=== PATIENT | female | born 1940 | race Caucasian/White ===

== ENCOUNTER 2022-12-15 02:09 | Emergency (ER) | payer MEDICARE, OTHER ==
[~2022-12-15] VITALS: Ht 142.2 cm; Wt 44.0 kg
[2022-12-15] MEDS ORDERED: LIDOCAINE 2% 5ML JELLY UROJET TOP ONE (07:35)
[2022-12-15] MEDS ORDERED: DONE1TAB64 PO (08:08)
[2022-12-15] MEDS ORDERED: ALLO100T PO (08:08)
[2022-12-15] MEDS ORDERED: SITA50TAB PO (08:08)
[2022-12-15] MEDS ORDERED: FLOM0.4C39 PO (08:08)
[2022-12-15] MEDS ORDERED: LEVO50TA5 PO (08:08)
[2022-12-15] MEDS ORDERED: INSU100V3 SQ (08:08)
[2022-12-15] MEDS ORDERED: INSU100V12 SQ (08:08)
[2022-12-15] MEDS ORDERED: GLIP10TA PO (08:08)
[2022-12-15] MEDS ORDERED: AMLO25TA PO (08:08)
[2022-12-15] MEDS ORDERED: HYDR-3363 PO (08:08)
[2022-12-15] MEDS ORDERED: NS 500 ML IV ONE (09:00)
[2022-12-15 09:42] LABS: VENOUS BASE EXCESS -0.9 (-2.0-2.0); VENOUS HCO3 25.5 MMOL/L (23.0-27.0); VENOUS PARTIAL PRESSURE CO2 49.4 mmHg (38.0-50.0); VENOUS PARTIAL PRESSURE O2 31.2 mmHg (30.0-50.0); VENOUS PH 7.331 UNITS (7.330-7.430); VENOUS STANDARD HCO3 22.8 MMOL/L
[2022-12-15 09:56] LABS: BASO # 0.1 10^3/uL (0.0-0.2); BASO % 0.9 % (0.0-1.0); EOS # 0.2 10^3/uL (0.0-0.5); EOS % 2.1 % (0.0-3.0); HEMATOCRIT 36.1 % (36.0-47.0); HEMOGLOBIN 11.4 g/dl (12.0-15.5); LYMPH # 1.8 10^3/uL (1.5-5.0); LYMPH % 19.6 % (24.0-44.0); MEAN CORPUSCULAR HGB CONC 31.6 g/dl (32.0-36.5); MEAN CORPUSCULAR VOLUME 82.4 fl (80.0-96.0); MONO # 0.7 10^3/uL (0.0-0.8); MONO % 7.5 % (2.0-8.0); NEUTROPHILS # 6.4 10^3/uL (1.5-8.5); NEUTROPHILS % 69.7 % (36.0-66.0); PLATELET COUNT, AUTOMATED 355 10^3/uL (150-450); RED BLOOD COUNT 4.38 10^6/uL (4.00-5.40); WHITE BLOOD COUNT 9.1 10^3/uL (4.0-10.0)
[2022-12-15 10:04] LABS: OSMOLALITY SERUM 306 MOSM/KG (280-301)
[2022-12-15 10:07] LABS: LIPASE 114 U/L (12-53)
[2022-12-15 10:09] LABS: ALBUMIN 2.6 G/DL (3.2-5.2); ALKALINE PHOSPHATASE 116 U/L (46-116); ALT/SGPT 14 U/L (7.0-40); AST/SGOT 15 U/L (<34); BILIRUBIN,DIRECT 0.2 MG/DL (<0.4); BILIRUBIN,TOTAL 0.6 MG/DL (0.3-1.2); BLOOD UREA NITROGEN 25 MG/DL (9-23); CALCIUM LEVEL 8.8 MG/DL (8.3-10.6); CARBON DIOXIDE LEVEL 25 MMOL/L (20-31); CHLORIDE LEVEL 104 MMOL/L (98-107); CREATININE FOR GFR 0.85 MG/DL (0.55-1.30); GLOMERULAR FILTRATION RATE > 60.0 (>32); GLUCOSE, FASTING 393 MG/DL (74-106); POTASSIUM SERUM 4.3 MMOL/L (3.5-5.1); SODIUM LEVEL 138 MMOL/L (136-145); TOTAL PROTEIN 6.6 G/DL (5.7-8.2)
[2022-12-15 10:10] LABS: ACETONE/KETONE 0.08 MMOL/L (0.02-0.27)
[2022-12-15] MEDS ORDERED: CEPH500C PO (12:24)
[2022-12-15] MEDS ORDERED: HumuLIN R (REGULAR) INSULIN (NovoLIN R) **100U/ML** PER UNIT IV ONE (12:25)
[2022-12-15] MEDS ORDERED: BD P31MI2 SC (12:29)
[2022-12-15 12:41] VITALS: BP 144/66; TEMP 98.3; O2SAT 98
== END 2022-12-15 13:07 | disposition home or self-care (01) ==
LOC: M ED 02:09
DX: N39.0 Urinary tract infection, site not specified (principal); Z46.6 Encounter for fitting and adjustment of urinary device; E11.65 Type 2 diabetes mellitus with hyperglycemia; Z79.4 Long term (current) use of insulin; Z79.84 Long term (current) use of oral hypoglycemic drugs; Z79.899 Other long term (current) drug therapy
CPT/HCPCS: 51702; 80047; 80048; 80076; 81001; 82010; 82803; 83036; 83605; 83690; 83930; 85025; 87088; 87186; 93005; 94760; 96361; 96374; 99284; J1815

== ENCOUNTER 2022-12-16 17:11 | Emergency (ER) | payer MEDICARE, OTHER ==
[~2022-12-16] VITALS: Ht 152.4 cm; Wt 42.7 kg
[~2022-12-16 17:11] MED LIST: ALLO100T PO; AMLO25TA PO; BD P31MI2 SC; CEPH500C PO; DONE1TAB64 PO; FLOM0.4C39 PO; GLIP10TA PO; HYDR-3363 PO; INSU100V12 SQ; INSU100V3 SQ; LEVO50TA5 PO; SITA50TAB PO
[2022-12-16 21:26] VITALS: BP 136/80; TEMP 98.2; O2SAT 100
== END 2022-12-16 23:53 | disposition home or self-care (01) ==
LOC: M ED 17:11
DX: T83.021A Displacement of indwelling urethral catheter, initial encounter (principal); E11.9 Type 2 diabetes mellitus without complications; Z79.4 Long term (current) use of insulin; Z79.899 Other long term (current) drug therapy

== ENCOUNTER 2022-12-21 12:12 | Emergency (ER) | payer MEDICARE, OTHER ==
[2022-12-21 12:14] VITALS: TEMP 97.2
[2022-12-21] MEDS ORDERED: LIDOCAINE 2% 5ML JELLY UROJET TOP ONE (14:50)
[2022-12-21] MEDS ORDERED: ACETAMINOPHEN 325 MG TAB PO ONE (16:20)
[2022-12-21 16:40] VITALS: BP 172/84; O2SAT 96
[2022-12-21] MEDS ORDERED: GLIP10TA PO (16:46)
[2022-12-21] MEDS ORDERED: AMLO25TA PO (16:46)
[2022-12-21] MEDS ORDERED: ALLO100T PO (16:46)
[2022-12-21] MEDS ORDERED: DONE1TAB64 PO (16:46)
== END 2022-12-21 14:52 | disposition home or self-care (01) ==
LOC: M ED 12:12
DX: T83.098A Other mechanical complication of other urinary catheter, initial encounter (principal); Z76.0 Encounter for issue of repeat prescription; E11.9 Type 2 diabetes mellitus without complications; G30.9 Alzheimer's disease, unspecified; E03.9 Hypothyroidism, unspecified; Z79.4 Long term (current) use of insulin; Z79.84 Long term (current) use of oral hypoglycemic drugs; Z79.899 Other long term (current) drug therapy

== ENCOUNTER 2022-12-24 16:54 | Emergency (ER) | payer MEDICARE, OTHER ==
[~2022-12-24] VITALS: Ht 142.2 cm; Wt 43.6 kg
[2022-12-25 02:51] VITALS: BP 188/87; TEMP 96.3; O2SAT 100
== END 2022-12-25 03:52 | disposition home or self-care (01) ==
LOC: M ED 16:54
DX: T83.021A Displacement of indwelling urethral catheter, initial encounter (principal); E11.9 Type 2 diabetes mellitus without complications; E03.9 Hypothyroidism, unspecified; G30.9 Alzheimer's disease, unspecified; Z79.4 Long term (current) use of insulin; Z79.899 Other long term (current) drug therapy

== ENCOUNTER 2022-12-27 11:26 | Emergency (ER) | payer MEDICARE, OTHER ==
[~2022-12-27] VITALS: Ht 149.9 cm; Wt 42.0 kg
[2022-12-27 11:27] VITALS: BP 180/72; TEMP 97.8; O2SAT 99
[2022-12-27] MEDS ORDERED: LIDOCAINE 2% 5ML JELLY UROJET TOP ONE (15:05)
== END 2022-12-27 16:23 | disposition home or self-care (01) ==
LOC: M ED 11:26
DX: T83.028A Displacement of other urinary catheter, initial encounter (principal); E11.9 Type 2 diabetes mellitus without complications; F03.90 Unspecified dementia, unspecified severity, without behavioral disturbance, psychotic disturbance, mood disturbance, and anxiety; Z79.4 Long term (current) use of insulin; Z79.899 Other long term (current) drug therapy

== ENCOUNTER 2023-01-12 20:16 | Emergency (ER) | payer MEDICARE, OTHER ==
[2023-01-12 20:18] VITALS: BP 176/89; TEMP 99.8; O2SAT 100
== END 2023-01-12 22:40 | disposition home or self-care (01) ==
LOC: M ED 20:16
DX: T83.028A Displacement of other urinary catheter, initial encounter (principal); E11.9 Type 2 diabetes mellitus without complications; I10 Essential (primary) hypertension; Z79.84 Long term (current) use of oral hypoglycemic drugs; Z79.4 Long term (current) use of insulin; Z79.899 Other long term (current) drug therapy

== ENCOUNTER → 2023-01-14 | Outpatient (REF) | payer MEDICARE, OTHER ==
[2023-01-14 18:19] LABS: BASO # 0.1 10^3/uL (0.0-0.2); BASO % 0.7 % (0.0-1.0); EOS # 0.1 10^3/uL (0.0-0.5); EOS % 1.8 % (0.0-3.0); HEMATOCRIT 37.3 % (36.0-47.0); LYMPH # 2.5 10^3/uL (1.5-5.0); LYMPH % 34.5 % (24.0-44.0); MEAN CORPUSCULAR HEMOGLOBIN 26.7 pg (27.0-33.0); MEAN CORPUSCULAR HGB CONC 32.2 g/dl (32.0-36.5); MEAN CORPUSCULAR VOLUME 82.9 fl (80.0-96.0); MONO # 0.4 10^3/uL (0.0-0.8); MONO % 5.4 % (2.0-8.0); NEUTROPHILS # 4.2 10^3/uL (1.5-8.5); NEUTROPHILS % 57.5 % (36.0-66.0); PLATELET COUNT, AUTOMATED 275 10^3/uL (150-450); WHITE BLOOD COUNT 7.3 10^3/uL (4.0-10.0)
[2023-01-14 18:33] LABS: HEMOGLOBIN A1c 10.6 % (4.0-6.0)
[2023-01-14 18:45] LABS: ALBUMIN 2.7 G/DL (3.2-5.2); ALKALINE PHOSPHATASE 132 U/L (46-116); ALT/SGPT 46 U/L (7.0-40); AST/SGOT 23 U/L (<34); BILIRUBIN,TOTAL 0.7 MG/DL (0.3-1.2); BLOOD UREA NITROGEN 18 MG/DL (9-23); CALCIUM LEVEL 9.1 MG/DL (8.3-10.6); CARBON DIOXIDE LEVEL 23 MMOL/L (20-31); CHLORIDE LEVEL 107 MMOL/L (98-107); CHOLESTEROL LEVEL 148 MG/DL (<200); CHOLESTEROL RISK RATIO 2.79 (<5); CREATININE FOR GFR 0.74 MG/DL (0.55-1.30); GLOMERULAR FILTRATION RATE > 60.0 (>32); GLUCOSE, FASTING 187 MG/DL (74-106); HDL CHOLESTEROL 52.9 MG/DL (>40); LDL CHOLESTEROL 78.5 MG/DL (<100); NON-HDL-C 95.1 MG/DL; POTASSIUM SERUM 3.5 MMOL/L (3.5-5.1); SODIUM LEVEL 143 MMOL/L (136-145); TOTAL 25(OH) VITAMIN D 21.2 NG/ML (20.0-100.0); TOTAL PROTEIN 6.9 G/DL (5.7-8.2); TRIGLYCERIDES LEVEL 83 MG/DL (<150)
[2023-01-14 19:09] LABS: HIV 1&2 SCREEN NEGATIVE (NEGATIVE)
[2023-01-14 19:17] LABS: HEPATITIS C VIRUS ABY INDEX 0.18 INDEX (<0.8)
[2023-01-14 19:23] LABS: URIC ACID 3.9 MG/DL (3.1-7.8)
== END ==
LOC: M LAB REF 17:10
PROVIDERS: ATTEND Nurse Practitioner Family
DX: Z11.9 Encounter for screening for infectious and parasitic diseases, unspecified (principal); M10.9 Gout, unspecified; Z68.22 Body mass index [BMI] 22.0-22.9, adult; E55.9 Vitamin D deficiency, unspecified; R53.83 Other fatigue; E11.9 Type 2 diabetes mellitus without complications; Z79.899 Other long term (current) drug therapy

== ENCOUNTER 2023-01-22 22:32 | Inpatient (IN) | payer MEDICARE, OTHER ==
[~2023-01-22] VITALS: Ht 142.2 cm; Wt 41.8 kg
[2023-01-22] MEDS ORDERED: DEXTROSE 50% 50ML SYRINGE IV STA ×2 (22:40→22:43)
[2023-01-22] MEDS ORDERED: NS 1,000 ML IV ONE (22:50)
[2023-01-22 22:55] LABS: ABG BASE EXCESS -5.4 (-2.0-2.0); ABG HCO3 20.6 MMOL/L (22.0-26.0); ABG O2 SATURATION 98.2 % (95.0-99.0); ABG PARTIAL PRESSURE CO2 42.2 mmHg (35.0-45.0); ABG PARTIAL PRESSURE O2 123.5 mmHg (75.0-100.0); ABG TOTAL CO2 21.9 MMOL/L (23.0-31.0); ABG pH (ARTERIAL) 7.306 UNITS (7.350-7.450)
[2023-01-22 23:19] LABS: BASO # 0.1 10^3/uL (0.0-0.2); BASO % 0.7 % (0.0-1.0); EOS # 0.2 10^3/uL (0.0-0.5); EOS % 2.2 % (0.0-3.0); HEMOGLOBIN 11.8 g/dl (12.0-15.5); LYMPH % 28.8 % (24.0-44.0); MEAN CORPUSCULAR HEMOGLOBIN 26.7 pg (27.0-33.0); MEAN CORPUSCULAR HGB CONC 31.9 g/dl (32.0-36.5); MEAN CORPUSCULAR VOLUME 83.7 fl (80.0-96.0); MONO # 0.8 10^3/uL (0.0-0.8); NEUTROPHILS # 6.1 10^3/uL (1.5-8.5); NEUTROPHILS % 59.6 % (36.0-66.0); PLATELET COUNT, AUTOMATED 414 10^3/uL (150-450); RED BLOOD COUNT 4.42 10^6/uL (4.00-5.40); WHITE BLOOD COUNT 10.3 10^3/uL (4.0-10.0)
[2023-01-22 23:42] LABS: OSMOLALITY SERUM 291 MOSM/KG (280-301)
[2023-01-22 23:43] LABS: CK-MB VALUE MASS 1.3 NG/ML (<3.6)
[2023-01-22 23:44] LABS: ETHYL ALCOHOL (ETHANOL) 0.003 % (0.000-0.010)
[2023-01-22 23:46] LABS: CPK CREATINE PHOSPHOKINASE 43 U/L (34-145); MB/CK RELATIVE INDEX 3.02 (< OR =4)
[2023-01-22 23:47] LABS: THYROID STIMULATING HORMONE 0.048 uIU/ML (0.55-4.78)
[2023-01-23 00:23] LABS: ALBUMIN 2.8 G/DL (3.2-5.2); ALKALINE PHOSPHATASE 116 U/L (46-116); ALT/SGPT 25 U/L (7.0-40); AST/SGOT 13 U/L (<34); BILIRUBIN,DIRECT 0.1 MG/DL (<0.4); BILIRUBIN,TOTAL 0.4 MG/DL (0.3-1.2); BLOOD UREA NITROGEN 24 MG/DL (9-23); CALCIUM LEVEL 9.2 MG/DL (8.3-10.6); CARBON DIOXIDE LEVEL 22 MMOL/L (20-31); CHLORIDE LEVEL 110 MMOL/L (98-107); GLOMERULAR FILTRATION RATE > 60.0 (>32); GLUCOSE, FASTING 20 MG/DL (74-106); POTASSIUM SERUM 3.1 MMOL/L (3.5-5.1); SODIUM LEVEL 141 MMOL/L (136-145); TOTAL PROTEIN 6.7 G/DL (5.7-8.2)
[2023-01-23 00:37] LABS: HEMOGLOBIN A1c 11.2 % (4.0-6.0)
[2023-01-23 00:51] LABS: CK-MB VALUE MASS 1.2 NG/ML (<3.6)
[2023-01-23 00:55] LABS: FREE T4 1.82 NG/DL (0.89-1.76)
[2023-01-23 01:07] LABS: MB/CK RELATIVE INDEX 2.26 (< OR =4)
[2023-01-23] MEDS ORDERED: ACETAMINOPHEN TAB 650MG DOSE (2X325MG) PO PRN (03:15)
[2023-01-23] MEDS ORDERED: GLUCAGON INJ 1MG VIAL SC PRN (03:15)
[2023-01-23] MEDS ORDERED: GLUCOSE 4GM CHEW TABLET PO PRN (03:15)
[2023-01-23] MEDS ORDERED: MAALOX 30 ML SUSP *UDC PO PRN (03:15)
[2023-01-23] MEDS ORDERED: DEXTROSE 50% 50ML SYRINGE IV PRN (03:15)
[2023-01-23] MEDS ORDERED: MOM 30ML SUSPENSION UDC PO PRN (03:15)
[2023-01-23 03:22] LABS: RSV AMPLIFICATION NEGATIVE (NEGATIVE)
[2023-01-23] MEDS ORDERED: DICL100G10 TOP (04:04)
[2023-01-23] MEDS ORDERED: ERGO500029 PO (04:04)
[2023-01-23] MEDS ORDERED: DONE1TAB64 PO (04:09)
[2023-01-23] MEDS ORDERED: GLIP10TA6 PO (04:09)
[2023-01-23] MEDS ORDERED: ALLO100T PO (04:09)
[2023-01-23] MEDS ORDERED: AMLO2.5T3 PO (04:09)
[2023-01-23] MEDS ORDERED: INSU100I36 SC (04:09)
[2023-01-23] MEDS ORDERED: INSU100I16 SC (04:09)
[2023-01-23] MEDS ORDERED: SITA50TAB PO (04:09)
[2023-01-23] MEDS ORDERED: HOME MED LIST COMPLETE! XX SCH (04:10)
[2023-01-23] MEDS ORDERED: POTASSIUM CHLORIDE 10% LIQ 20MEQ/15ML UDC PO ONE (05:00)
[2023-01-23 06:27] LABS: BASO % 0.4 % (0.0-1.0); EOS # 0.1 10^3/uL (0.0-0.5); EOS % 1.1 % (0.0-3.0); HEMATOCRIT 34.9 % (36.0-47.0); LYMPH # 2.9 10^3/uL (1.5-5.0); LYMPH % 25.9 % (24.0-44.0); MEAN CORPUSCULAR HEMOGLOBIN 26.6 pg (27.0-33.0); MEAN CORPUSCULAR HGB CONC 31.5 g/dl (32.0-36.5); MEAN CORPUSCULAR VOLUME 84.3 fl (80.0-96.0); MONO # 0.6 10^3/uL (0.0-0.8); MONO % 5.8 % (2.0-8.0); NEUTROPHILS # 7.4 10^3/uL (1.5-8.5); NEUTROPHILS % 66.5 % (36.0-66.0); PLATELET COUNT, AUTOMATED 319 10^3/uL (150-450); RED BLOOD COUNT 4.14 10^6/uL (4.00-5.40); WHITE BLOOD COUNT 11.1 10^3/uL (4.0-10.0)
[2023-01-23 06:51] LABS: BLOOD UREA NITROGEN 22 MG/DL (9-23); CALCIUM LEVEL 8.6 MG/DL (8.3-10.6); CARBON DIOXIDE LEVEL 24 MMOL/L (20-31); CHLORIDE LEVEL 112 MMOL/L (98-107); CREATININE FOR GFR 0.74 MG/DL (0.55-1.30); GLOMERULAR FILTRATION RATE > 60.0 (>32); GLUCOSE, FASTING 173 MG/DL (74-106); MAGNESIUM LEVEL 1.6 MG/DL (1.8-2.4); POTASSIUM SERUM 4.2 MMOL/L (3.5-5.1); SODIUM LEVEL 143 MMOL/L (136-145)
[2023-01-23] MEDS ORDERED: PEN1MIS21 SC (07:50)
[2023-01-23] MEDS ORDERED: GLUC1TES2 XX (07:50)
[2023-01-23] MEDS ORDERED: BLOOKIT21 XX (07:50)
[2023-01-23] MEDS ORDERED: LANC30MI XX (07:50)
[2023-01-23] MEDS ORDERED: ALCOPAD25 TOP (07:50)
[2023-01-23] MEDS: LACTOBACILLUS ACIDOPHILUS CAP (BACID) PO SCH ×2 (08:00→17:32)
[2023-01-23] MEDS: INSULIN LISPRO (NovoLOG) PER UNIT SC SCH ×3 (08:42→16:48)
[2023-01-23] MEDS ORDERED: cefTRIAXone SOD 1 GM in D5W MINI-BAG PLUS 50 ML IV SCH (12:00)
[2023-01-23 16:10] VITALS: BP 150/80; TEMP 97.5; O2SAT 95
[2023-01-23] MEDS: ENOXAPARIN 40MG/0.4ML SYRINGE (J1650 PER 10MG) SC SCH (16:43)
[2023-01-23] MEDS: allopurinoL 100 MG TAB PO SCH (16:44)
[2023-01-23 18:00] VITALS: BP 140/60; TEMP 96.4; O2SAT 97
[2023-01-23 20:47] VITALS: BP 164/82
[2023-01-23] MEDS ORDERED: INSULIN LISPRO (NovoLOG) PER UNIT SC SCH (21:00)
[2023-01-23 22:00] VITALS: BP 164/82; TEMP 97.9; O2SAT 95
[2023-01-24 02:03] VITALS: BP 130/60; TEMP 97.9; O2SAT 100
[2023-01-24 06:00] VITALS: BP 134/60; TEMP 97.8; O2SAT 94
[2023-01-24] MEDS ORDERED: cefTRIAXone SOD 1 GM in D5W MINI-BAG PLUS 50 ML IV ONE (09:00)
[2023-01-24] MEDS ORDERED: FOSFOMYCIN TROMETHAMINE 3 GM POWDER PACKET (MONUROL) PO ONE (09:00)
[2023-01-24] MEDS ORDERED: MAG SULF 1GM/100ML (MAG RUN) 1 GM in IV 1 EA IV ONE (09:00)
[2023-01-24] MEDS: ENOXAPARIN 40MG/0.4ML SYRINGE (J1650 PER 10MG) SC SCH (09:25)
[2023-01-24] MEDS: allopurinoL 100 MG TAB PO SCH (09:25)
[2023-01-24] MEDS: LACTOBACILLUS ACIDOPHILUS CAP (BACID) PO SCH (09:25)
[2023-01-24 09:26] LABS: PROCALCITONIN <0.04 ng/ml
[2023-01-24] MEDS: INSULIN LISPRO (NovoLOG) PER UNIT SC SCH ×2 (09:27→12:57)
[2023-01-24 10:00] VITALS: BP 136/55; TEMP 97.5; O2SAT 99
[2023-01-24] MEDS ORDERED: LEVO1TAB39 PO (11:54)
[2023-01-24 14:00] VITALS: BP 136/55; TEMP 97.9; O2SAT 98
[2023-01-24] MEDS ORDERED: JANU100T PO (16:27)
[2023-01-24] MEDS ORDERED: LANTINJ4 SC (16:28)
[2023-01-24] MEDS ORDERED: INSU100I16 SQ ×2 (16:32→16:33)
== END 2023-01-24 17:30 | disposition home health service (06) | DRG 917 ==
LOC: M ED 22:32 → M ED INP 01-23 03:08 → ENRESERV 01-23 15:00 → M MSPAV 01-23 16:20
PROVIDERS: ADMIT Family Medicine; ATTEND General Practice
DX: T38.3X1A Poisoning by insulin and oral hypoglycemic [antidiabetic] drugs, accidental (unintentional), initial encounter (principal); G93.41 Metabolic encephalopathy; N39.0 Urinary tract infection, site not specified; E87.20 Acidosis, unspecified; E11.649 Type 2 diabetes mellitus with hypoglycemia without coma; F02.80 Dementia in other diseases classified elsewhere, unspecified severity, without behavioral disturbance, psychotic disturbance, mood disturbance, and anxiety; E87.6 Hypokalemia; E03.9 Hypothyroidism, unspecified; I10 Essential (primary) hypertension; F41.9 Anxiety disorder, unspecified; G30.9 Alzheimer's disease, unspecified; M10.9 Gout, unspecified; D63.8 Anemia in other chronic diseases classified elsewhere; E78.5 Hyperlipidemia, unspecified; E83.42 Hypomagnesemia; R00.1 Bradycardia, unspecified; Z66 Do not resuscitate; Z79.4 Long term (current) use of insulin

== ENCOUNTER 2023-01-31 17:30 | Emergency (ER) | payer MEDICARE, OTHER ==
[~2023-01-31] VITALS: Ht 142.2 cm; Wt 44.4 kg
[~2023-01-31 17:30] MED LIST changes: +ALCOPAD25 TOP; +AMLO2.5T3 PO; +BLOOKIT21 XX; +DICL100G10 TOP; +ERGO500029 PO; +GLIP10TA6 PO; +GLUC1TES2 XX; +INSU100I16 SC; +INSU100I16 SQ; +INSU100I36 SC; +JANU100T PO; +LANC30MI XX; +LANTINJ4 SC; +LEVO1TAB39 PO; +PEN1MIS21 SC
[2023-01-31 20:31] VITALS: BP 131/67; TEMP 97.9; O2SAT 97
== END 2023-01-31 20:32 | disposition home or self-care (01) ==
LOC: M ED 17:30
DX: T83.020A Displacement of cystostomy catheter, initial encounter (principal); E11.9 Type 2 diabetes mellitus without complications; I10 Essential (primary) hypertension; E78.5 Hyperlipidemia, unspecified; E03.9 Hypothyroidism, unspecified; D64.9 Anemia, unspecified; Z79.4 Long term (current) use of insulin; Z79.899 Other long term (current) drug therapy

== ENCOUNTER → 2023-02-03 | Outpatient (REF) | payer MEDICARE, OTHER ==
[2023-02-03 19:42] LABS: BASO # 0.1 10^3/uL (0.0-0.2); BASO % 0.6 % (0.0-1.0); EOS # 0.1 10^3/uL (0.0-0.5); HEMOGLOBIN 10.8 g/dl (12.0-15.5); LYMPH # 2.2 10^3/uL (1.5-5.0); LYMPH % 27.3 % (24.0-44.0); MEAN CORPUSCULAR HEMOGLOBIN 27.2 pg (27.0-33.0); MEAN CORPUSCULAR HGB CONC 32.7 g/dl (32.0-36.5); MEAN CORPUSCULAR VOLUME 83.1 fl (80.0-96.0); MONO # 0.5 10^3/uL (0.0-0.8); MONO % 6.5 % (2.0-8.0); NEUTROPHILS # 5.2 10^3/uL (1.5-8.5); NEUTROPHILS % 64.1 % (36.0-66.0); PLATELET COUNT, AUTOMATED 301 10^3/uL (150-450); RED BLOOD COUNT 3.97 10^6/uL (4.00-5.40); WHITE BLOOD COUNT 8.1 10^3/uL (4.0-10.0)
[2023-02-03 20:02] LABS: BLOOD UREA NITROGEN 20 MG/DL (9-23); CALCIUM LEVEL 8.1 MG/DL (8.3-10.6); CARBON DIOXIDE LEVEL 19 MMOL/L (20-31); CHLORIDE LEVEL 108 MMOL/L (98-107); CREATININE FOR GFR 0.78 MG/DL (0.55-1.30); GLOMERULAR FILTRATION RATE > 60.0 (>32); GLUCOSE, FASTING 309 MG/DL (74-106); MAGNESIUM LEVEL 1.5 MG/DL (1.8-2.4); POTASSIUM SERUM 4.1 MMOL/L (3.5-5.1); SODIUM LEVEL 138 MMOL/L (136-145)
== END ==
LOC: M LAB REF 17:44
PROVIDERS: ATTEND Nurse Practitioner Family
DX: E83.42 Hypomagnesemia (principal); D72.829 Elevated white blood cell count, unspecified

== ENCOUNTER 2023-02-19 17:43 | Emergency (ER) | payer MEDICARE, OTHER ==
[~2023-02-19] VITALS: Ht 149.9 cm; Wt 45.8 kg
[2023-02-19] MEDS ORDERED: NOVOINJ3 SC (18:17)
[2023-02-19 20:55] LABS: VENOUS BASE EXCESS 0.4 (-2.0-2.0); VENOUS HCO3 24.5 MMOL/L (23.0-27.0); VENOUS O2 SATURATION 49.4 % (60.0-80.0); VENOUS PARTIAL PRESSURE CO2 37.8 mmHg (38.0-50.0); VENOUS PARTIAL PRESSURE O2 25.6 mmHg (30.0-50.0); VENOUS STANDARD HCO3 23.8 MMOL/L; VENOUS TOTAL CO2 25.7 MMOL/L (24.0-28.0)
[2023-02-19 21:03] VITALS: TEMP 97.8
[2023-02-19 21:04] LABS: BASO # 0.1 10^3/uL (0.0-0.2); BASO % 0.7 % (0.0-1.0); EOS # 0.2 10^3/uL (0.0-0.5); EOS % 2.8 % (0.0-3.0); HEMATOCRIT 37.4 % (36.0-47.0); HEMOGLOBIN 12.2 g/dl (12.0-15.5); LYMPH # 2.9 10^3/uL (1.5-5.0); LYMPH % 34.6 % (24.0-44.0); MEAN CORPUSCULAR HEMOGLOBIN 27.7 pg (27.0-33.0); MEAN CORPUSCULAR HGB CONC 32.6 g/dl (32.0-36.5); MONO # 0.8 10^3/uL (0.0-0.8); MONO % 9.1 % (2.0-8.0); NEUTROPHILS # 4.5 10^3/uL (1.5-8.5); NEUTROPHILS % 52.4 % (36.0-66.0); PLATELET COUNT, AUTOMATED 288 10^3/uL (150-450); WHITE BLOOD COUNT 8.5 10^3/uL (4.0-10.0)
[2023-02-19 21:24] LABS: LIPASE 40 U/L (12-53)
[2023-02-19 21:25] LABS: ALBUMIN 2.8 G/DL (3.2-5.2); ALKALINE PHOSPHATASE 114 U/L (46-116); ALT/SGPT 34 U/L (7.0-40); AST/SGOT 19 U/L (<34); BILIRUBIN,DIRECT 0.1 MG/DL (<0.4); BILIRUBIN,TOTAL 0.5 MG/DL (0.3-1.2); BLOOD UREA NITROGEN 28 MG/DL (9-23); CARBON DIOXIDE LEVEL 28 MMOL/L (20-31); CHLORIDE LEVEL 109 MMOL/L (98-107); CREATININE FOR GFR 0.86 MG/DL (0.55-1.30); GLOMERULAR FILTRATION RATE > 60.0 (>32); GLUCOSE, FASTING 110 MG/DL (74-106); POTASSIUM SERUM 4.3 MMOL/L (3.5-5.1); SODIUM LEVEL 142 MMOL/L (136-145); TOTAL PROTEIN 6.8 G/DL (5.7-8.2)
[2023-02-19 22:09] LABS: ACETONE/KETONE 0.09 MMOL/L (0.02-0.27)
[2023-02-19 22:31] LABS: OSMOLALITY SERUM 297 MOSM/KG (280-301)
[2023-02-19 23:00] VITALS: BP 175/81
[2023-02-19 23:15] VITALS: O2SAT 98
[2023-02-19] MEDS ORDERED: CEFD300C41 PO (23:30)
[2023-02-20] MEDS ORDERED: CEFDINIR 300 MG CAP (OMNICEF) PO ONE
== END 2023-02-19 23:56 | disposition home or self-care (01) ==
LOC: M ED 17:43
DX: N39.0 Urinary tract infection, site not specified (principal); E11.9 Type 2 diabetes mellitus without complications; F17.200 Nicotine dependence, unspecified, uncomplicated; G30.9 Alzheimer's disease, unspecified; Z79.2 Long term (current) use of antibiotics; Z79.4 Long term (current) use of insulin; Z79.84 Long term (current) use of oral hypoglycemic drugs; Z79.899 Other long term (current) drug therapy

== ENCOUNTER 2023-02-21 01:06 | Inpatient (IN) | payer MEDICARE, OTHER ==
[~2023-02-21] VITALS: Ht 157.5 cm; Wt 48.2 kg
[~2023-02-21 01:06] MED LIST changes: +CEFD300C41 PO; +NOVOINJ3 SC
[2023-02-21 01:50] LABS: HEMATOCRIT 34.2 % (36.0-47.0); MEAN CORPUSCULAR HEMOGLOBIN 27.5 pg (27.0-33.0); MEAN CORPUSCULAR HGB CONC 32.2 g/dl (32.0-36.5); MEAN CORPUSCULAR VOLUME 85.5 fl (80.0-96.0); PLATELET COUNT, AUTOMATED 305 10^3/uL (150-450); WHITE BLOOD COUNT 12.7 10^3/uL (4.0-10.0)
[2023-02-21 02:18] LABS: ATYPICAL LYMPH 15 % (0-5); EOSINOPHILS 2 % (0-3); LYMPHOCYTES 36 % (16-44); MONOCYTES 6 % (0-5); NEUTROPHILS 41 % (28-66)
[2023-02-21 02:19] LABS: PLATELET ESTIMATE NORMAL (NORMAL)
[2023-02-21 02:23] LABS: RSV AMPLIFICATION NEGATIVE (NEGATIVE)
[2023-02-21] MEDS ORDERED: NS 1,000 ML IV ONE (02:35)
[2023-02-21 02:36] LABS: ALBUMIN 2.5 G/DL (3.2-5.2); BILIRUBIN,DIRECT 0.1 MG/DL (<0.4); BILIRUBIN,TOTAL 0.3 MG/DL (0.3-1.2); CALCIUM LEVEL 8.6 MG/DL (8.3-10.6); CREATININE FOR GFR 0.95 MG/DL (0.55-1.30); GLOMERULAR FILTRATION RATE 59.7 (>32); MB/CK RELATIVE INDEX 5.71 (< OR =4); POTASSIUM SERUM 4.3 MMOL/L (3.5-5.1); TOTAL PROTEIN 5.9 G/DL (5.7-8.2)
[2023-02-21] MEDS ORDERED: ISOVUE-370 76% 100ML VIAL As Ordered ONE (02:57)
[2023-02-21 03:36] LABS: CK-MB VALUE MASS < 1.0 NG/ML (<3.6)
[2023-02-21 03:37] LABS: CPK CREATINE PHOSPHOKINASE < 15 U/L (34-145)
[2023-02-21] MEDS ORDERED: MOM 30ML SUSPENSION UDC PO PRN (05:55)
[2023-02-21] MEDS ORDERED: DEXTROSE 50% 50ML SYRINGE IV PRN (05:55)
[2023-02-21] MEDS ORDERED: GLUCOSE 4GM CHEW TABLET PO PRN (05:55)
[2023-02-21] MEDS ORDERED: GLUCAGON INJ 1MG VIAL SC PRN (05:55)
[2023-02-21] MEDS ORDERED: UNRESOLVED CLARIFICATION ENTRY XX STA (06:14)
[2023-02-21] MEDS ORDERED: SYNT125T PO (07:47)
[2023-02-21] MEDS ORDERED: LANTINJ4 SC (07:47)
[2023-02-21] MEDS ORDERED: HOME MED LIST COMPLETE! XX SCH (07:50)
[2023-02-21] MEDS ORDERED: ENOXAPARIN 40MG/0.4ML SYRINGE (J1650 PER 10MG) SC SCH (09:00)
[2023-02-21 09:04] LABS: ALBUMIN 2.2 G/DL (3.2-5.2); ALKALINE PHOSPHATASE 97 U/L (46-116); ALT/SGPT 22 U/L (7.0-40); AST/SGOT 17 U/L (<34); BILIRUBIN,TOTAL 0.2 MG/DL (0.3-1.2); BLOOD UREA NITROGEN 29 MG/DL (9-23); CALCIUM LEVEL 8.1 MG/DL (8.3-10.6); CARBON DIOXIDE LEVEL 25 MMOL/L (20-31); CHLORIDE LEVEL 111 MMOL/L (98-107); CREATININE FOR GFR 0.84 MG/DL (0.55-1.30); GLOMERULAR FILTRATION RATE > 60.0 (>32); GLUCOSE, FASTING 322 MG/DL (74-106); MAGNESIUM LEVEL 1.7 MG/DL (1.8-2.4); POTASSIUM SERUM 4.3 MMOL/L (3.5-5.1); SODIUM LEVEL 141 MMOL/L (136-145); TOTAL PROTEIN 5.3 G/DL (5.7-8.2)
[2023-02-21] MEDS ORDERED: MAGNESIUM OXIDE 400MG TAB (MAG-OX) PO ONE (09:10)
[2023-02-21 09:14] LABS: BASO # 0.1 10^3/uL (0.0-0.2); BASO % 0.8 % (0.0-1.0); EOS # 0.1 10^3/uL (0.0-0.5); EOS % 1.1 % (0.0-3.0); HEMATOCRIT 30.7 % (36.0-47.0); HEMOGLOBIN 10.2 g/dl (12.0-15.5); LYMPH # 2.1 10^3/uL (1.5-5.0); LYMPH % 26.5 % (24.0-44.0); MEAN CORPUSCULAR HEMOGLOBIN 28.7 pg (27.0-33.0); MEAN CORPUSCULAR HGB CONC 33.2 g/dl (32.0-36.5); MEAN CORPUSCULAR VOLUME 86.2 fl (80.0-96.0); MONO # 0.6 10^3/uL (0.0-0.8); MONO % 7.2 % (2.0-8.0); NEUTROPHILS # 5.1 10^3/uL (1.5-8.5); NEUTROPHILS % 64.1 % (36.0-66.0); PLATELET COUNT, AUTOMATED 258 10^3/uL (150-450); RED BLOOD COUNT 3.56 10^6/uL (4.00-5.40); WHITE BLOOD COUNT 7.9 10^3/uL (4.0-10.0)
[2023-02-21] MEDS: LEVOTHYROXINE 125MCG TABLET (0.125MG) PO SCH (09:24)
[2023-02-21] MEDS: INSULIN LISPRO (NovoLOG) PER UNIT SC SCH ×4 (09:24→20:48)
[2023-02-21] MEDS: LEVEMIR (INSULIN DETEMIR) 1 UNITS/0.01ML SC SCH (09:24)
[2023-02-21] MEDS: DOCUSATE SODIUM 100MG CAPSULE PO SCH ×2 (09:25→20:42)
[2023-02-21 12:50] LABS: THYROID STIMULATING HORMONE 0.036 uIU/ML (0.55-4.78)
[2023-02-21 15:09] LABS: FREE T4 1.57 NG/DL (0.89-1.76); VITAMIN B12 LEVEL 243 PG/ML (211-911)
[2023-02-21 16:40] VITALS: BP 180/77; TEMP 98.2; O2SAT 97
[2023-02-21] MEDS: LACTOBACILLUS ACIDOPHILUS CAP (BACID) PO SCH (18:49)
[2023-02-21] MEDS: allopurinoL 100 MG TAB PO SCH (18:49)
[2023-02-21 19:33] VITALS: BP 180/70; TEMP 97.5; O2SAT 99
[2023-02-21] MEDS: cefTRIAXone SOD 1 GM in D5W MINI-BAG PLUS 50 ML IV SCH (19:35)
[2023-02-21] MEDS: ENOXAPARIN 40MG/0.4ML SYRINGE (J1650 PER 10MG) SC SCH (20:42)
[2023-02-21] MEDS ORDERED: DONEPEZIL 5 MG TAB PO SCH (21:00)
[2023-02-21 21:13] VITALS: BP 156/68
[2023-02-22] VITALS: BP 144/60; TEMP 97.6; O2SAT 99
[2023-02-22 04:00] VITALS: BP 144/67; TEMP 96.9; O2SAT 99
[2023-02-22 05:44] LABS: BASO # 0.1 10^3/uL (0.0-0.2); BASO % 0.9 % (0.0-1.0); EOS # 0.2 10^3/uL (0.0-0.5); EOS % 2.8 % (0.0-3.0); HEMATOCRIT 30.6 % (36.0-47.0); HEMOGLOBIN 9.8 g/dl (12.0-15.5); LYMPH # 2.8 10^3/uL (1.5-5.0); LYMPH % 41.3 % (24.0-44.0); MEAN CORPUSCULAR HEMOGLOBIN 27.8 pg (27.0-33.0); MEAN CORPUSCULAR VOLUME 86.7 fl (80.0-96.0); MONO # 0.6 10^3/uL (0.0-0.8); MONO % 8.2 % (2.0-8.0); NEUTROPHILS # 3.1 10^3/uL (1.5-8.5); NEUTROPHILS % 46.5 % (36.0-66.0); PLATELET COUNT, AUTOMATED 244 10^3/uL (150-450); RED BLOOD COUNT 3.53 10^6/uL (4.00-5.40); WHITE BLOOD COUNT 6.7 10^3/uL (4.0-10.0)
[2023-02-22 06:05] LABS: BLOOD UREA NITROGEN 29 MG/DL (9-23); CALCIUM LEVEL 8.5 MG/DL (8.3-10.6); CARBON DIOXIDE LEVEL 24 MMOL/L (20-31); CHLORIDE LEVEL 112 MMOL/L (98-107); CREATININE FOR GFR 0.78 MG/DL (0.55-1.30); GLOMERULAR FILTRATION RATE > 60.0 (>32); GLUCOSE, FASTING 200 MG/DL (74-106); MAGNESIUM LEVEL 1.8 MG/DL (1.8-2.4); POTASSIUM SERUM 4.2 MMOL/L (3.5-5.1); SODIUM LEVEL 142 MMOL/L (136-145)
[2023-02-22] MEDS: LEVOTHYROXINE 125MCG TABLET (0.125MG) PO SCH (06:11)
[2023-02-22 07:40] VITALS: BP 144/66; TEMP 97.2; O2SAT 98
[2023-02-22] MEDS: LEVEMIR (INSULIN DETEMIR) 1 UNITS/0.01ML SC SCH (10:02)
[2023-02-22] MEDS: INSULIN LISPRO (NovoLOG) PER UNIT SC SCH ×4 (10:02→20:11)
[2023-02-22] MEDS: allopurinoL 100 MG TAB PO SCH (10:03)
[2023-02-22] MEDS: DOCUSATE SODIUM 100MG CAPSULE PO SCH ×2 (10:03→20:13)
[2023-02-22] MEDS: LACTOBACILLUS ACIDOPHILUS CAP (BACID) PO SCH ×3 (10:04→17:32)
[2023-02-22 11:33] VITALS: BP 145/69; TEMP 98.2; O2SAT 98
[2023-02-22] MEDS: cefTRIAXone SOD 1 GM in D5W MINI-BAG PLUS 50 ML IV SCH (13:14)
[2023-02-22 16:48] VITALS: BP 136/63; TEMP 97.9; O2SAT 97
[2023-02-22 20:00] VITALS: BP 144/67; TEMP 98.3; O2SAT 100
[2023-02-22] MEDS: ENOXAPARIN 40MG/0.4ML SYRINGE (J1650 PER 10MG) SC SCH (20:13)
[2023-02-23] VITALS: BP 152/60; TEMP 98.4; O2SAT 96
[2023-02-23 03:51] VITALS: BP 168/66; TEMP 97.1; O2SAT 100
[2023-02-23 04:59] LABS: BASO # 0.1 10^3/uL (0.0-0.2); BASO % 0.8 % (0.0-1.0); EOS # 0.1 10^3/uL (0.0-0.5); EOS % 2.2 % (0.0-3.0); HEMATOCRIT 35.5 % (36.0-47.0); HEMOGLOBIN 11.5 g/dl (12.0-15.5); LYMPH # 2.3 10^3/uL (1.5-5.0); LYMPH % 39.3 % (24.0-44.0); MEAN CORPUSCULAR HEMOGLOBIN 27.6 pg (27.0-33.0); MEAN CORPUSCULAR HGB CONC 32.4 g/dl (32.0-36.5); MEAN CORPUSCULAR VOLUME 85.3 fl (80.0-96.0); MONO # 0.5 10^3/uL (0.0-0.8); MONO % 8.2 % (2.0-8.0); NEUTROPHILS # 2.9 10^3/uL (1.5-8.5); NEUTROPHILS % 49.2 % (36.0-66.0); PLATELET COUNT, AUTOMATED 288 10^3/uL (150-450); RED BLOOD COUNT 4.16 10^6/uL (4.00-5.40)
[2023-02-23 05:30] LABS: BLOOD UREA NITROGEN 26 MG/DL (9-23); CARBON DIOXIDE LEVEL 25 MMOL/L (20-31); CHLORIDE LEVEL 107 MMOL/L (98-107); CREATININE FOR GFR 0.83 MG/DL (0.55-1.30); GLOMERULAR FILTRATION RATE > 60.0 (>32); GLUCOSE, FASTING 344 MG/DL (74-106); MAGNESIUM LEVEL 1.8 MG/DL (1.8-2.4); POTASSIUM SERUM 4.3 MMOL/L (3.5-5.1); SODIUM LEVEL 138 MMOL/L (136-145)
[2023-02-23] MEDS: LEVOTHYROXINE 125MCG TABLET (0.125MG) PO SCH (06:15)
[2023-02-23] MEDS: allopurinoL 100 MG TAB PO SCH (08:09)
[2023-02-23] MEDS: DOCUSATE SODIUM 100MG CAPSULE PO SCH (08:09)
[2023-02-23] MEDS: LACTOBACILLUS ACIDOPHILUS CAP (BACID) PO SCH ×2 (08:09→13:01)
[2023-02-23] MEDS: INSULIN LISPRO (NovoLOG) PER UNIT SC SCH ×2 (08:09→13:01)
[2023-02-23] MEDS: LEVEMIR (INSULIN DETEMIR) 1 UNITS/0.01ML SC SCH (08:10)
[2023-02-23 08:16] VITALS: BP 174/68; TEMP 98.1; O2SAT 99
[2023-02-23 09:00] VITALS: BP 108/54
[2023-02-23] MEDS ORDERED: amLODIPine 5 MG TAB PO SCH (09:00)
[2023-02-23 11:24] VITALS: BP 106/52; TEMP 97.8; O2SAT 97
[2023-02-23] MEDS ORDERED: CEFD300C41 PO (12:06)
[2023-02-23] MEDS ORDERED: RISATAB3 PO (12:06)
[2023-02-23] MEDS: cefTRIAXone SOD 1 GM in D5W MINI-BAG PLUS 50 ML IV SCH (13:00)
== END 2023-02-23 15:46 | disposition home health service (06) | DRG 699 ==
LOC: M ED 01:06 → EDBD 01:06 → M ED INP 05:54 → ENRESERV 14:43 → M PCU 16:42
PROVIDERS: ADMIT Family Medicine; ATTEND Internal Medicine
DX: T83.511A Infection and inflammatory reaction due to indwelling urethral catheter, initial encounter (principal); G93.40 Encephalopathy, unspecified; E87.20 Acidosis, unspecified; N13.4 Hydroureter; N13.30 Unspecified hydronephrosis; N39.0 Urinary tract infection, site not specified; R00.1 Bradycardia, unspecified; I10 Essential (primary) hypertension; G30.9 Alzheimer's disease, unspecified; E03.9 Hypothyroidism, unspecified; E11.9 Type 2 diabetes mellitus without complications; K21.9 Gastro-esophageal reflux disease without esophagitis; B96.1 Klebsiella pneumoniae [K. pneumoniae] as the cause of diseases classified elsewhere; R55 Syncope and collapse; F02.80 Dementia in other diseases classified elsewhere, unspecified severity, without behavioral disturbance, psychotic disturbance, mood disturbance, and anxiety; M10.9 Gout, unspecified; Z79.899 Other long term (current) drug therapy; Z79.4 Long term (current) use of insulin; Z66 Do not resuscitate; Z85.828 Personal history of other malignant neoplasm of skin; Y84.6 Urinary catheterization as the cause of abnormal reaction of the patient, or of later complication, without mention of misadventure at the time of the procedure

== ENCOUNTER → 2023-03-17 | Outpatient (CLI) | payer MEDICARE, OTHER ==
[~2023-03-17] MED LIST changes: -CEFD300C41 PO; +CEFD300C42 PO; +PEN-308 SC; -PEN1MIS21 SC; +RISATAB3 PO; +SYNT125T PO
== END ==
LOC: M EKG 16:54
PROVIDERS: ATTEND Nurse Practitioner Family
DX: R00.1 Bradycardia, unspecified (principal); R94.39 Abnormal result of other cardiovascular function study

== ENCOUNTER → 2023-03-25 | Outpatient (REF) | payer MEDICARE, OTHER | LOC: M SMT 17:29 | PROVIDERS: ATTEND Physician Assistant | DX: R30.0 Dysuria (principal) ==

== ENCOUNTER → 2023-07-11 | Outpatient (REF) | payer MEDICARE, OTHER ==
[~2023-07-11] MED LIST changes: +CEFD1CAP9 PO; -CEFD300C42 PO; -INSU100I36 SC; +INSU100I60 SC
[2023-07-11 18:05] LABS: THYROID STIMULATING HORMONE 2.422 uIU/ML (0.55-4.78); TOTAL 25(OH) VITAMIN D 30.1 NG/ML (20.0-100.0)
== END ==
LOC: M LAB REF 16:58
PROVIDERS: ATTEND Nurse Practitioner Family
DX: R94.6 Abnormal results of thyroid function studies (principal); Z79.899 Other long term (current) drug therapy

== ENCOUNTER 2023-09-04 22:54 | Inpatient (IN) | payer MEDICARE, OTHER ==
[~2023-09-04] VITALS: Ht 157.5 cm; Wt 39.0 kg
[2023-09-05] VITALS (8 sets, daily range): BP systolic 97–126; BP diastolic 45–99; TEMP 96.8–97.5; O2SAT 96–100
[2023-09-05] MEDS: fentaNYL 100 MCG/2 ML INJECTION IV ONE (01:27)
[2023-09-05 01:37] LABS: HEMATOCRIT 34.6 % (36.0-47.0); HEMOGLOBIN 11.8 g/dl (12.0-15.5); MEAN CORPUSCULAR HEMOGLOBIN 29.6 pg (27.0-33.0); MEAN CORPUSCULAR HGB CONC 34.1 g/dl (32.0-36.5); MEAN CORPUSCULAR VOLUME 86.9 fl (80.0-96.0); PLATELET COUNT, AUTOMATED 316 10^3/uL (150-450); RED BLOOD COUNT 3.98 10^6/uL (4.00-5.40); WHITE BLOOD COUNT 10.4 10^3/uL (4.0-10.0)
[2023-09-05 01:54] LABS: INR 0.95; PROTHROMBIN TIME 12.4 SECONDS (12.5-14.5)
[2023-09-05 01:58] LABS: ALBUMIN 2.6 G/DL (3.2-5.2); BILIRUBIN,DIRECT 0.2 MG/DL (<0.4); BILIRUBIN,TOTAL 0.8 MG/DL (0.3-1.2); CALCIUM LEVEL 9.5 MG/DL (8.3-10.6); CREATININE FOR GFR 0.96 MG/DL (0.55-1.30); GLOMERULAR FILTRATION RATE 58.9 (>32); POTASSIUM SERUM 4.2 MMOL/L (3.5-5.1); TOTAL PROTEIN 6.7 G/DL (5.7-8.2)
[2023-09-05] MEDS: LIDOCAINE 2% 5ML JELLY UROJET TOP ONE (02:05)
[2023-09-05] MEDS: HumuLIN R (REGULAR) INSULIN (NovoLIN R) **100U/ML** PER UNIT IV STA (02:40)
[2023-09-05 02:51] LABS: APPEARANCE, URINE CLOUDY (CLEAR); BACTERIA, URINE AUTO NEGATIVE (NEGATIVE); BILIRUBIN, URINE AUTO NEGATIVE (NEGATIVE); BLOOD, URINE BLOOD NEGATIVE (NEGATIVE); COLOR, URINE YELLOW (YELLOW); GLUCOSE, URINE (UA) AUTO 3+ mg/dL (NEGATIVE); KETONE, URINE AUTO NEGATIVE (NEGATIVE); LEUKOCYTE ESTERASE, URINE AUTO 3+ (NEGATIVE); NITRITE, URINE AUTO NEGATIVE (NEGATIVE); PROTEIN, URINE AUTO 1+ mg/dL (NEGATIVE); RBC, URINE AUTO 5 /HPF (0-3); SPECIFIC GRAVITY URINE AUTO 1.008 (1.002-1.035); SQUAMOUS EPITHELIAL CELL UR AU 0 /HPF (0-6); UROBILINOGEN, URINE AUTO 0.2 mg/dL (0.0-2.0); WBC, URINE AUTO TNTC /HPF (0-3)
[2023-09-05] MEDS: cefTRIAXone SOD 1 GM in D5W MINI-BAG PLUS 50 ML IV ONE (03:35)
[2023-09-05] MEDS: HYDROMORPHONE HCL 0.5 MG/ 0.5 ML SYRINGE IV PRN (03:52)
[2023-09-05] MEDS: NS 1,000 ML IV SCH (05:00)
[2023-09-05] MEDS ORDERED: GLUCAGON INJ 1MG VIAL SC PRN ×2 (06:25→17:50)
[2023-09-05] MEDS ORDERED: GLUCOSE 4 GM CHEW PO PRN ×2 (06:25→17:50)
[2023-09-05] MEDS ORDERED: MEMA1TAB3 PO (08:17)
[2023-09-05] MEDS ORDERED: JANU100T PO (08:17)
[2023-09-05] MEDS ORDERED: LEVO100T5 PO (08:17)
[2023-09-05] MEDS ORDERED: AMLO1TAB24 PO (08:17)
[2023-09-05] MEDS ORDERED: QUET1TAB17 PO (08:17)
[2023-09-05] MEDS ORDERED: METF500T13 PO (08:17)
[2023-09-05] MEDS ORDERED: HOME MED LIST COMPLETE! XX SCH ×2 (08:20→13:55)
[2023-09-05] MEDS: cefTRIAXone SOD 2 GM in D5W MINI-BAG PLUS 50 ML IV SCH (11:31)
[2023-09-05] MEDS: INSULIN LISPRO (NovoLOG) PER UNIT SC SCH (12:00)
[2023-09-05] MEDS ORDERED: METF-838 PO (13:51)
[2023-09-05] MEDS ORDERED: propofoL 200 MG/20 ML VIAL As Ordered ONE (15:58)
[2023-09-05] MEDS ORDERED: fentaNYL 100 MCG/2 ML INJECTION As Ordered ONE (15:58)
[2023-09-05] MEDS ORDERED: ONDANSETRON 4MG 2ML VIAL As Ordered ONE (15:59)
[2023-09-05] MEDS ORDERED: METOCLOPRAMIDE INJ 10MG/2ML VIAL As Ordered ONE (15:59)
[2023-09-05] MEDS ORDERED: LIDOCAINE 2% 100MG/5ML SDV (FOR ANES.) As Ordered ONE (15:59)
[2023-09-05] MEDS ORDERED: GLYCOPYRROLATE INJ 0.2 MG/ML 2 ML VIAL As Ordered ONE (16:31)
[2023-09-05] MEDS ORDERED: ePHEDrine SULFATE 25 MG/5 ML(5MG/ML) SYRINGE As Ordered ONE (16:58)
[2023-09-05] MEDS: ceFAZolin 2 GM/D5W 50 ML IV BAG As Ordered ONE (17:02)
[2023-09-05] MEDS: LR 1,000 ML IV SCH (17:50)
[2023-09-05] MEDS ORDERED: MEPERIDINE 25 MG/ML 1ML VIAL IV PRN (17:50)
[2023-09-05] MEDS ORDERED: ONDANSETRON 4MG 2ML VIAL IV PRN (17:50)
[2023-09-05] MEDS ORDERED: oxyCODONE 5MG TAB PO PRN (17:50)
[2023-09-05] MEDS ORDERED: DEXTROSE 50% 50ML SYRINGE IV PRN (17:50)
[2023-09-05] MEDS: MORPHINE 2 MG/ML 1ML VIAL IV PRN (18:20)
[2023-09-05] MEDS: INSULIN LISPRO (NovoLOG) PER UNIT SC PRN (18:20)
[2023-09-06] MEDS ORDERED: ceFAZolin SOD 2 GM in IV 1 EA IV SCH (01:00)
[2023-09-06 03:45] VITALS: BP 121/63; TEMP 97.2; O2SAT 98
[2023-09-06] MEDS: CIPROFLOXACIN 500MG TABLET PO SCH (06:00)
[2023-09-06 07:45] VITALS: BP 106/68; TEMP 97.7; O2SAT 97
[2023-09-06] MEDS: D5W/0.45% SODIUM CHLORIDE 1,000 ML IV SCH (08:51)
[2023-09-06] MEDS: ACETAMINOPHEN 500 MG TAB PO SCH (08:51)
[2023-09-06] MEDS: allopurinoL 100 MG TAB PO SCH (09:00)
[2023-09-06 10:00] VITALS: BP 109/70; TEMP 97.7; O2SAT 99
[2023-09-06 13:34] LABS: BASO % 0.5 % (0.0-1.0); EOS % 0.7 % (0.0-3.0); HEMATOCRIT 31.1 % (36.0-47.0); HEMOGLOBIN 9.9 g/dl (12.0-15.5); LYMPH # 0.9 10^3/uL (1.5-5.0); LYMPH % 20.3 % (24.0-44.0); MEAN CORPUSCULAR HEMOGLOBIN 29.6 pg (27.0-33.0); MEAN CORPUSCULAR HGB CONC 31.8 g/dl (32.0-36.5); MEAN CORPUSCULAR VOLUME 93.1 fl (80.0-96.0); MONO # 0.5 10^3/uL (0.0-0.8); MONO % 10.8 % (2.0-8.0); NEUTROPHILS # 2.9 10^3/uL (1.5-8.5); NEUTROPHILS % 67.2 % (36.0-66.0); PLATELET COUNT, AUTOMATED 218 10^3/uL (150-450); RED BLOOD COUNT 3.34 10^6/uL (4.00-5.40); WHITE BLOOD COUNT 4.3 10^3/uL (4.0-10.0)
[2023-09-06] MEDS: LEVEMIR (INSULIN DETEMIR) 1 UNITS/0.01ML SC ONE (13:35)
[2023-09-06] MEDS: INSULIN LISPRO (NovoLOG) PER UNIT SC STA (13:36)
[2023-09-06 13:52] LABS: ACETONE/KETONE 0.12 MMOL/L (0.02-0.27)
[2023-09-06 13:54] LABS: BLOOD UREA NITROGEN 25 MG/DL (9-23); CARBON DIOXIDE LEVEL 24 MMOL/L (20-31); CHLORIDE LEVEL 110 MMOL/L (98-107); CREATININE FOR GFR 0.88 MG/DL (0.55-1.30); GLOMERULAR FILTRATION RATE > 60.0 (>32); GLUCOSE, FASTING 550 MG/DL (74-106); POTASSIUM SERUM 4.6 MMOL/L (3.5-5.1); SODIUM LEVEL 141 MMOL/L (136-145)
[2023-09-06 13:55] LABS: HEMOGLOBIN A1c 10.1 % (4.0-6.0)
[2023-09-06 14:00] VITALS: BP 114/68; TEMP 97.3; O2SAT 98
[2023-09-06] MEDS: INSULIN LISPRO (NovoLOG) PER UNIT SC ONE (15:16)
[2023-09-06] MEDS: INSULIN LISPRO (NovoLOG) PER UNIT SC SCH ×4 (16:40→20:03)
[2023-09-06 20:06] VITALS: BP 101/49; TEMP 97.5; O2SAT 100
[2023-09-06] MEDS: MEMANTINE 5MG TABLET (NAMENDA) PO SCH (20:17)
[2023-09-06] MEDS: QUEtiapine FUMARATE 25 MG TAB PO SCH (20:17)
[2023-09-06] MEDS: amLODIPine 5 MG TAB PO SCH (20:18)
[2023-09-06 23:03] LABS: CALCIUM LEVEL 8.5 MG/DL (8.3-10.6); CREATININE FOR GFR 1.1 MG/DL (0.55-1.30); GLOMERULAR FILTRATION RATE 50.4 (>32); POTASSIUM SERUM 3.9 MMOL/L (3.5-5.1)
[2023-09-06] MEDS: DEXTROSE 50% 50ML SYRINGE IV PRN (23:05)
[2023-09-07] MEDS: traMADol 50 MG TAB PO PRN (04:08)
[2023-09-07 05:53] VITALS: BP 126/59; TEMP 98.1; O2SAT 98
[2023-09-07 06:37] LABS: CALCIUM LEVEL 8.4 MG/DL (8.3-10.6); CREATININE FOR GFR 1.08 MG/DL (0.55-1.30); GLOMERULAR FILTRATION RATE 51.5 (>32); POTASSIUM SERUM 4.8 MMOL/L (3.5-5.1)
[2023-09-07] MEDS: LEVOTHYROXINE 100MCG TABLET (0.1MG) PO SCH (07:08)
[2023-09-07] MEDS: D5W 1,000 ML IV SCH (08:34)
[2023-09-07] MEDS ORDERED: SITagliptin 50 MG TAB (JANUVIA) PO SCH (09:00)
[2023-09-07] MEDS ORDERED: LEVEMIR (INSULIN DETEMIR) 1 UNITS/0.01ML SC SCH (09:00)
[2023-09-07 13:01] LABS: CALCIUM LEVEL 8.4 MG/DL (8.3-10.6); CREATININE FOR GFR 1.06 MG/DL (0.55-1.30); GLOMERULAR FILTRATION RATE 52.6 (>32); POTASSIUM SERUM 4.5 MMOL/L (3.5-5.1)
[2023-09-07 14:00] VITALS: BP 127/60; TEMP 98.6; O2SAT 98
[2023-09-07 20:03] VITALS: BP 132/62; TEMP 97.5; O2SAT 100
[2023-09-07 21:00] LABS: ABG BASE EXCESS -3.7 (-2.0-2.0); ABG HCO3 20.8 MMOL/L (22.0-26.0); ABG O2 SATURATION 97.7 % (95.0-99.0); ABG PARTIAL PRESSURE CO2 35.2 mmHg (35.0-45.0); ABG STANDARD HCO3 21.4 MMOL/L. (22.0-26.0); ABG TOTAL CO2 21.9 MMOL/L (23.0-31.0); ABG pH (ARTERIAL) 7.389 UNITS (7.350-7.450)
[2023-09-08 06:05] VITALS: BP 130/53; TEMP 98.2; O2SAT 98
[2023-09-08 06:51] LABS: CALCIUM LEVEL 8.1 MG/DL (8.3-10.6); CREATININE FOR GFR 1.06 MG/DL (0.55-1.30); GLOMERULAR FILTRATION RATE 52.6 (>32); POTASSIUM SERUM 4.4 MMOL/L (3.5-5.1)
[2023-09-08 08:49] LABS: ABG BASE EXCESS -1.7 (-2.0-2.0); ABG HCO3 22.2 MMOL/L (22.0-26.0); ABG O2 SATURATION 97.9 % (95.0-99.0); ABG PARTIAL PRESSURE CO2 34.3 mmHg (35.0-45.0); ABG PARTIAL PRESSURE O2 104.7 mmHg (75.0-100.0); ABG STANDARD HCO3 23.1 MMOL/L. (22.0-26.0); ABG TOTAL CO2 23.3 MMOL/L (23.0-31.0); ABG pH (ARTERIAL) 7.429 UNITS (7.350-7.450)
[2023-09-08] MEDS: ENOXAPARIN 30MG/0.3ML SYRINGE (J1650 PER 10MG) SC SCH (09:32)
[2023-09-08] MEDS: DEXTROSE 50% 50ML SYRINGE IV STA (12:54)
[2023-09-08] MEDS: D5W/0.45% SODIUM CHLORIDE 1,000 ML IV SCH ×2 (13:03→13:42)
[2023-09-08 13:33] LABS: CALCIUM LEVEL 8.3 MG/DL (8.3-10.6); CREATININE FOR GFR 1.06 MG/DL (0.55-1.30); GLOMERULAR FILTRATION RATE 52.6 (>32)
[2023-09-08 14:10] VITALS: BP 127/56; TEMP 98.5; O2SAT 98
[2023-09-08 19:58] VITALS: TEMP 98.1; O2SAT 99
[2023-09-09 05:52] VITALS: BP 159/77; TEMP 98.6; O2SAT 95
[2023-09-09 07:04] LABS: CALCIUM LEVEL 8.7 MG/DL (8.3-10.6); CREATININE FOR GFR 0.95 MG/DL (0.55-1.30); GLOMERULAR FILTRATION RATE 59.7 (>32); POTASSIUM SERUM 4.5 MMOL/L (3.5-5.1)
[2023-09-09 11:05] VITALS: BP 108/46; TEMP 98.1; O2SAT 99
[2023-09-09 15:33] VITALS: BP 127/60; TEMP 97.9; O2SAT 97
[2023-09-09 22:00] VITALS: BP 128/59; TEMP 97.7; O2SAT 95
[2023-09-10 05:42] VITALS: BP 151/63; TEMP 98.6; O2SAT 97
[2023-09-10 06:44] LABS: BASO # 0.1 10^3/uL (0.0-0.2); BASO % 0.8 % (0.0-1.0); EOS # 0.1 10^3/uL (0.0-0.5); EOS % 1.4 % (0.0-3.0); HEMATOCRIT 31.8 % (36.0-47.0); HEMOGLOBIN 10.4 g/dl (12.0-15.5); LYMPH # 1.7 10^3/uL (1.5-5.0); LYMPH % 25.9 % (24.0-44.0); MEAN CORPUSCULAR HEMOGLOBIN 29.6 pg (27.0-33.0); MEAN CORPUSCULAR HGB CONC 32.7 g/dl (32.0-36.5); MEAN CORPUSCULAR VOLUME 90.6 fl (80.0-96.0); MONO # 0.9 10^3/uL (0.0-0.8); NEUTROPHILS # 3.7 10^3/uL (1.5-8.5); NEUTROPHILS % 57.4 % (36.0-66.0); PLATELET COUNT, AUTOMATED 317 10^3/uL (150-450); RED BLOOD COUNT 3.51 10^6/uL (4.00-5.40); WHITE BLOOD COUNT 6.4 10^3/uL (4.0-10.0)
[2023-09-10 07:09] LABS: CALCIUM LEVEL 9.4 MG/DL (8.3-10.6); CREATININE FOR GFR 1.14 MG/DL (0.55-1.30); GLOMERULAR FILTRATION RATE 48.3 (>32); POTASSIUM SERUM 4.2 MMOL/L (3.5-5.1)
[2023-09-10] MEDS: SANTYL OINT 30GM TOP SCH (09:26)
[2023-09-10 21:15] VITALS: BP 125/55; TEMP 97.5; O2SAT 95
[2023-09-11 05:21] VITALS: BP 141/99; TEMP 98.8; O2SAT 89
[2023-09-11 06:21] VITALS: BP 128/62
[2023-09-11 06:35] LABS: BASO % 0.3 % (0.0-1.0); EOS # 0.1 10^3/uL (0.0-0.5); EOS % 1.2 % (0.0-3.0); HEMATOCRIT 29.8 % (36.0-47.0); HEMOGLOBIN 9.7 g/dl (12.0-15.5); LYMPH % 22.1 % (24.0-44.0); MEAN CORPUSCULAR HEMOGLOBIN 29.2 pg (27.0-33.0); MEAN CORPUSCULAR HGB CONC 32.6 g/dl (32.0-36.5); MEAN CORPUSCULAR VOLUME 89.8 fl (80.0-96.0); MONO % 11.1 % (2.0-8.0); PLATELET COUNT, AUTOMATED 318 10^3/uL (150-450); RED BLOOD COUNT 3.32 10^6/uL (4.00-5.40); WHITE BLOOD COUNT 9.2 10^3/uL (4.0-10.0)
[2023-09-11 06:59] LABS: CALCIUM LEVEL 9.1 MG/DL (8.3-10.6); CREATININE FOR GFR 1.06 MG/DL (0.55-1.30); GLOMERULAR FILTRATION RATE 52.6 (>32); POTASSIUM SERUM 4.3 MMOL/L (3.5-5.1)
[2023-09-11] MEDS: LEVEMIR (INSULIN DETEMIR) 1 UNITS/0.01ML SC SCH (09:00)
[2023-09-11 14:30] VITALS: BP 121/46; TEMP 98.4; O2SAT 100
[2023-09-11] MEDS: SITagliptin 50 MG TAB (JANUVIA) PO ONE (15:44)
[2023-09-11 19:35] VITALS: TEMP 97.7; O2SAT 98
[2023-09-11 22:12] VITALS: BP 127/64; TEMP 97.8; O2SAT 98
[2023-09-12 05:12] VITALS: BP 133/66; TEMP 97.9; O2SAT 97
[2023-09-12 05:58] LABS: BASO % 0.5 % (0.0-1.0); EOS # 0.1 10^3/uL (0.0-0.5); EOS % 2.3 % (0.0-3.0); HEMATOCRIT 29.9 % (36.0-47.0); HEMOGLOBIN 9.6 g/dl (12.0-15.5); LYMPH # 1.8 10^3/uL (1.5-5.0); LYMPH % 29.1 % (24.0-44.0); MEAN CORPUSCULAR HEMOGLOBIN 29.1 pg (27.0-33.0); MEAN CORPUSCULAR HGB CONC 32.1 g/dl (32.0-36.5); MEAN CORPUSCULAR VOLUME 90.6 fl (80.0-96.0); MONO # 0.5 10^3/uL (0.0-0.8); MONO % 8.3 % (2.0-8.0); NEUTROPHILS # 3.7 10^3/uL (1.5-8.5); NEUTROPHILS % 59.3 % (36.0-66.0); PLATELET COUNT, AUTOMATED 402 10^3/uL (150-450); WHITE BLOOD COUNT 6.2 10^3/uL (4.0-10.0)
[2023-09-12 06:28] LABS: CALCIUM LEVEL 8.7 MG/DL (8.3-10.6); CREATININE FOR GFR 1.06 MG/DL (0.55-1.30); GLOMERULAR FILTRATION RATE 52.6 (>32); MAGNESIUM LEVEL 1.9 MG/DL (1.8-2.4); POTASSIUM SERUM 4.2 MMOL/L (3.5-5.1)
[2023-09-12] MEDS: SITagliptin 50 MG TAB (JANUVIA) PO ONE (08:59)
[2023-09-12] MEDS: LEVEMIR (INSULIN DETEMIR) 1 UNITS/0.01ML SC SCH (09:00)
[2023-09-12] MEDS: INSULIN LISPRO (NovoLOG) PER UNIT SC SCH ×2 (11:31→20:53)
[2023-09-12 13:50] VITALS: BP 123/55; TEMP 98.8; O2SAT 99
[2023-09-12 20:41] VITALS: BP 141/71; TEMP 98.1; O2SAT 100
[2023-09-13 08:44] LABS: CALCIUM LEVEL 8.8 MG/DL (8.3-10.6); CREATININE FOR GFR 1.11 MG/DL (0.55-1.30); GLOMERULAR FILTRATION RATE 49.9 (>32)
[2023-09-13] MEDS: LEVEMIR (INSULIN DETEMIR) 1 UNITS/0.01ML SC SCH (09:00)
[2023-09-13 14:00] VITALS: BP 110/57; TEMP 97.9; O2SAT 98
[2023-09-13 20:50] VITALS: BP 132/64; TEMP 98.2; O2SAT 100
[2023-09-14 06:09] VITALS: BP 133/63; TEMP 97.7; O2SAT 98
[2023-09-14 14:16] VITALS: BP 117/55; TEMP 97.7; O2SAT 99
[2023-09-14 21:30] VITALS: BP 118/75; TEMP 97.7; O2SAT 96
[2023-09-15 14:00] VITALS: BP 110/60; TEMP 98.2; O2SAT 100
[2023-09-15] MEDS: SITagliptin 50 MG TAB (JANUVIA) PO SCH (15:37)
[2023-09-15 20:05] VITALS: BP 123/80; TEMP 98.4; O2SAT 93
[2023-09-15 20:15] VITALS: BP 127/75; TEMP 97.9; O2SAT 95
[2023-09-16 05:37] VITALS: BP 129/69; TEMP 97.9; O2SAT 100
[2023-09-16] MEDS: HALOPERIDOL LACTATE 5MG/ML VIAL IV PRN (08:21)
[2023-09-16 09:12] LABS: BASO % 0.3 % (0.0-1.0); EOS # 0.2 10^3/uL (0.0-0.5); EOS % 1.8 % (0.0-3.0); HEMATOCRIT 31.4 % (36.0-47.0); HEMOGLOBIN 10.2 g/dl (12.0-15.5); LYMPH # 1.7 10^3/uL (1.5-5.0); LYMPH % 19.3 % (24.0-44.0); MEAN CORPUSCULAR HEMOGLOBIN 29.9 pg (27.0-33.0); MEAN CORPUSCULAR HGB CONC 32.5 g/dl (32.0-36.5); MEAN CORPUSCULAR VOLUME 92.1 fl (80.0-96.0); MONO # 0.8 10^3/uL (0.0-0.8); MONO % 8.9 % (2.0-8.0); NEUTROPHILS # 6.1 10^3/uL (1.5-8.5); NEUTROPHILS % 69.1 % (36.0-66.0); PLATELET COUNT, AUTOMATED 493 10^3/uL (150-450); RED BLOOD COUNT 3.41 10^6/uL (4.00-5.40); WHITE BLOOD COUNT 8.8 10^3/uL (4.0-10.0)
[2023-09-16 09:35] LABS: CALCIUM LEVEL 9.1 MG/DL (8.3-10.6); CREATININE FOR GFR 1.38 MG/DL (0.55-1.30); GLOMERULAR FILTRATION RATE 38.8 (>32); POTASSIUM SERUM 4.4 MMOL/L (3.5-5.1)
[2023-09-16 13:45] VITALS: BP 132/69; TEMP 98.6; O2SAT 97
[2023-09-16] MEDS: NS 1,000 ML IV SCH (13:48)
[2023-09-16 21:00] VITALS: BP 142/67; TEMP 97.7; O2SAT 97
[2023-09-17 06:30] VITALS: BP 148/69; TEMP 97.7; O2SAT 94
[2023-09-17 08:09] LABS: HEMATOCRIT 29.3 % (36.0-47.0); HEMOGLOBIN 9.3 g/dl (12.0-15.5); MEAN CORPUSCULAR HEMOGLOBIN 29.6 pg (27.0-33.0); MEAN CORPUSCULAR HGB CONC 31.7 g/dl (32.0-36.5); MEAN CORPUSCULAR VOLUME 93.3 fl (80.0-96.0); PLATELET COUNT, AUTOMATED 476 10^3/uL (150-450); RED BLOOD COUNT 3.14 10^6/uL (4.00-5.40); WHITE BLOOD COUNT 6.8 10^3/uL (4.0-10.0)
[2023-09-17 08:34] LABS: ALBUMIN 1.6 G/DL (3.2-5.2); BILIRUBIN,TOTAL 0.3 MG/DL (0.3-1.2); CALCIUM LEVEL 8.2 MG/DL (8.3-10.6); CREATININE FOR GFR 1.19 MG/DL (0.55-1.30); POTASSIUM SERUM 4.8 MMOL/L (3.5-5.1); TOTAL PROTEIN 5.3 G/DL (5.7-8.2)
[2023-09-17] MEDS: HEPARIN SOD (PORCINE) 5000UNITS/ML 1ML VIAL/SYRINGE SQ SCH (09:56)
[2023-09-17 14:11] VITALS: BP 109/63; TEMP 97.9; O2SAT 100
[2023-09-17 21:00] VITALS: BP 113/59; TEMP 97.9; O2SAT 100
[2023-09-18 05:51] LABS: HEMATOCRIT 26.1 % (36.0-47.0); HEMOGLOBIN 8.3 g/dl (12.0-15.5); MEAN CORPUSCULAR HEMOGLOBIN 29.1 pg (27.0-33.0); MEAN CORPUSCULAR HGB CONC 31.8 g/dl (32.0-36.5); MEAN CORPUSCULAR VOLUME 91.6 fl (80.0-96.0); PLATELET COUNT, AUTOMATED 422 10^3/uL (150-450); RED BLOOD COUNT 2.85 10^6/uL (4.00-5.40); WHITE BLOOD COUNT 7.8 10^3/uL (4.0-10.0)
[2023-09-18 06:20] LABS: ALBUMIN 1.5 G/DL (3.2-5.2); BILIRUBIN,TOTAL 0.3 MG/DL (0.3-1.2); CALCIUM LEVEL 7.9 MG/DL (8.3-10.6); CREATININE FOR GFR 1.18 MG/DL (0.55-1.30); GLOMERULAR FILTRATION RATE 46.5 (>32); POTASSIUM SERUM 4.7 MMOL/L (3.5-5.1)
[2023-09-18 06:54] VITALS: BP 138/65; TEMP 97.9; O2SAT 98
[2023-09-18 14:00] VITALS: BP 114/98; TEMP 97.9; O2SAT 98
[2023-09-18 20:11] VITALS: BP 139/119; TEMP 98.4; O2SAT 93
[2023-09-19 06:07] VITALS: BP 102/77; TEMP 97.7; O2SAT 94
[2023-09-19 07:01] LABS: HEMATOCRIT 27.8 % (36.0-47.0); HEMOGLOBIN 8.8 g/dl (12.0-15.5); MEAN CORPUSCULAR HEMOGLOBIN 29.8 pg (27.0-33.0); MEAN CORPUSCULAR HGB CONC 31.7 g/dl (32.0-36.5); MEAN CORPUSCULAR VOLUME 94.2 fl (80.0-96.0); PLATELET COUNT, AUTOMATED 417 10^3/uL (150-450); RED BLOOD COUNT 2.95 10^6/uL (4.00-5.40)
[2023-09-19 07:28] LABS: ALBUMIN 1.6 G/DL (3.2-5.2); BILIRUBIN,TOTAL 0.2 MG/DL (0.3-1.2); CALCIUM LEVEL 8.2 MG/DL (8.3-10.6); CREATININE FOR GFR 1.15 MG/DL (0.55-1.30); GLOMERULAR FILTRATION RATE 47.9 (>32); POTASSIUM SERUM 4.9 MMOL/L (3.5-5.1); TOTAL PROTEIN 5.2 G/DL (5.7-8.2)
[2023-09-19] MEDS: LEVEMIR (INSULIN DETEMIR) 1 UNITS/0.01ML SC SCH (08:04)
[2023-09-19 14:42] VITALS: BP 128/50; TEMP 97.5; O2SAT 100
[2023-09-19 20:58] VITALS: BP 125/51; TEMP 97.9; O2SAT 99
[2023-09-19 21:12] VITALS: BP 125/51
[2023-09-20 06:10] VITALS: BP 115/55; TEMP 97.3; O2SAT 98
[2023-09-20] MEDS ORDERED: ACET325C5 PO (07:02)
[2023-09-20 07:21] LABS: HEMATOCRIT 28.5 % (36.0-47.0); HEMOGLOBIN 8.9 g/dl (12.0-15.5); MEAN CORPUSCULAR HEMOGLOBIN 29.3 pg (27.0-33.0); MEAN CORPUSCULAR HGB CONC 31.2 g/dl (32.0-36.5); MEAN CORPUSCULAR VOLUME 93.8 fl (80.0-96.0); PLATELET COUNT, AUTOMATED 444 10^3/uL (150-450); RED BLOOD COUNT 3.04 10^6/uL (4.00-5.40); WHITE BLOOD COUNT 6.9 10^3/uL (4.0-10.0)
[2023-09-20 07:40] LABS: ALBUMIN 1.7 G/DL (3.2-5.2); BILIRUBIN,TOTAL 0.3 MG/DL (0.3-1.2); CALCIUM LEVEL 8.4 MG/DL (8.3-10.6); CREATININE FOR GFR 1.15 MG/DL (0.55-1.30); GLOMERULAR FILTRATION RATE 47.9 (>32); POTASSIUM SERUM 5.1 MMOL/L (3.5-5.1); TOTAL PROTEIN 5.4 G/DL (5.7-8.2)
[2023-09-20] MEDS ORDERED: MEMA1TAB3 PO (10:58)
[2023-09-20] MEDS ORDERED: ASPI81CH33 PO (11:02)
== END 2023-09-20 12:20 | disposition home health service (06) | DRG 480 ==
LOC: M ED 22:54 → M MS5PR 09-05 04:47 → M ED 09-05 04:48 → M MS5PR 09-05 14:14
PROVIDERS: ADMIT Internal Medicine; ATTEND Internal Medicine
PROC: 0QS704Z Reposition Left Upper Femur with Internal Fixation Device, Open Approach (ICD-10-PCS; principal; 2023-09-05 17:30)
DX: S72.012A Unspecified intracapsular fracture of left femur, initial encounter for closed fracture (principal); G93.41 Metabolic encephalopathy; E43 Unspecified severe protein-calorie malnutrition; N39.0 Urinary tract infection, site not specified; E87.0 Hyperosmolality and hypernatremia; N17.9 Acute kidney failure, unspecified; F02.80 Dementia in other diseases classified elsewhere, unspecified severity, without behavioral disturbance, psychotic disturbance, mood disturbance, and anxiety; E11.65 Type 2 diabetes mellitus with hyperglycemia; I10 Essential (primary) hypertension; Z79.4 Long term (current) use of insulin; Z79.899 Other long term (current) drug therapy; E78.5 Hyperlipidemia, unspecified; E03.9 Hypothyroidism, unspecified; G30.9 Alzheimer's disease, unspecified; M10.9 Gout, unspecified; Z85.828 Personal history of other malignant neoplasm of skin; R29.6 Repeated falls; D63.8 Anemia in other chronic diseases classified elsewhere; K75.81 Nonalcoholic steatohepatitis (NASH); Z66 Do not resuscitate; M19.90 Unspecified osteoarthritis, unspecified site; R26.89 Other abnormalities of gait and mobility; W18.30XA Fall on same level, unspecified, initial encounter; Y92.009 Unspecified place in unspecified non-institutional (private) residence as the place of occurrence of the external cause

== ENCOUNTER → 2023-10-14 | Outpatient (CLI) | payer MEDICARE, OTHER ==
[~2023-10-14] MED LIST changes: +ACET325C5 PO; +AMLO1TAB24 PO; +ASPI81CH33 PO; +LEVO100T5 PO; +MEMA1TAB3 PO; +METF-838 PO; +METF500T13 PO; +QUET1TAB17 PO
== END ==
LOC: M SOG 07:57
PROVIDERS: ATTEND Orthopaedic Surgery
DX: Z53.9 Procedure and treatment not carried out, unspecified reason (principal)

== ENCOUNTER → 2023-10-17 | Outpatient (CLI) | payer MEDICARE, OTHER | LOC: M SOG 07:58 | PROVIDERS: ATTEND Orthopaedic Surgery | DX: S72.042D Displaced fracture of base of neck of left femur, subsequent encounter for closed fracture with routine healing (principal) ==

== ENCOUNTER → 2023-12-05 | Outpatient (CLI) | payer MEDICARE, OTHER | LOC: M SOG 13:08 | PROVIDERS: ATTEND Orthopaedic Surgery | DX: S72.042A Displaced fracture of base of neck of left femur, initial encounter for closed fracture (principal); Y93.9 Activity, unspecified; Y92.9 Unspecified place or not applicable ==

== ENCOUNTER → 2023-12-08 | Outpatient (REF) | payer MEDICARE, OTHER ==
[2023-12-08 16:14] LABS: ALBUMIN 2.6 G/DL (3.2-5.2); BILIRUBIN,TOTAL 0.4 MG/DL (0.3-1.2); CALCIUM LEVEL 9.3 MG/DL (8.3-10.6); CREATININE FOR GFR 1.14 MG/DL (0.55-1.30); GLOMERULAR FILTRATION RATE 48.3 (>32); POTASSIUM SERUM 4.5 MMOL/L (3.5-5.1); TOTAL PROTEIN 6.5 G/DL (5.7-8.2)
[2023-12-08 16:30] LABS: BASO % 0.4 % (0.0-1.0); EOS # 0.1 10^3/uL (0.0-0.5); EOS % 1.2 % (0.0-3.0); HEMATOCRIT 35.5 % (36.0-47.0); HEMOGLOBIN 11.1 g/dl (12.0-15.5); LYMPH # 1.5 10^3/uL (1.5-5.0); LYMPH % 30.3 % (24.0-44.0); MEAN CORPUSCULAR HEMOGLOBIN 28.5 pg (27.0-33.0); MEAN CORPUSCULAR HGB CONC 31.3 g/dl (32.0-36.5); MONO # 0.3 10^3/uL (0.0-0.8); MONO % 6.7 % (2.0-8.0); NEUTROPHILS # 3.1 10^3/uL (1.5-8.5); PLATELET COUNT, AUTOMATED 211 10^3/uL (150-450); WHITE BLOOD COUNT 5.1 10^3/uL (4.0-10.0)
[2023-12-08 17:21] LABS: HEMOGLOBIN A1c 7.9 % (4.0-6.0)
== END ==
LOC: M LAB REF 12:58
PROVIDERS: ATTEND Nurse Practitioner Family
DX: E11.65 Type 2 diabetes mellitus with hyperglycemia (principal); R74.01 Elevation of levels of liver transaminase levels; D64.9 Anemia, unspecified

== ENCOUNTER 2023-12-15 17:55 | Inpatient (IN) | payer MEDICARE, OTHER, MEDICAID ==
[~2023-12-15] VITALS: Ht 160 cm; Wt 37.5 kg
[2023-12-15] MEDS: NS 1,000 ML IV ONE (18:35)
[2023-12-15] MEDS: LIDOCAINE 2% 5ML JELLY UROJET TOP ONE (18:35)
[2023-12-15 18:50] LABS: HEMATOCRIT 35.6 % (36.0-47.0); HEMOGLOBIN 11.4 g/dl (12.0-15.5); MEAN CORPUSCULAR HEMOGLOBIN 29.2 pg (27.0-33.0); PLATELET COUNT, AUTOMATED 250 10^3/uL (150-450); RED BLOOD COUNT 3.91 10^6/uL (4.00-5.40); WHITE BLOOD COUNT 18.6 10^3/uL (4.0-10.0)
[2023-12-15 18:56] LABS: ALBUMIN 1.8 G/DL (3.2-5.2); ALKALINE PHOSPHATASE 158 U/L (46-116); ALT/SGPT 12 U/L (7.0-40); AST/SGOT < 8 U/L (<34); BILIRUBIN,DIRECT 0.2 MG/DL (<0.4); BILIRUBIN,TOTAL 0.6 MG/DL (0.3-1.2); BLOOD UREA NITROGEN 118 MG/DL (9-23); CALCIUM LEVEL 8.3 MG/DL (8.3-10.6); CARBON DIOXIDE LEVEL 21 MMOL/L (20-31); CHLORIDE LEVEL 124 MMOL/L (98-107); CREATININE FOR GFR 2.41 MG/DL (0.55-1.30); GLOMERULAR FILTRATION RATE 20.4 (>32); GLUCOSE, FASTING 306 MG/DL (74-106); MAGNESIUM LEVEL 2.7 MG/DL (1.8-2.4); POTASSIUM SERUM 4.9 MMOL/L (3.5-5.1); SODIUM LEVEL 153 MMOL/L (136-145); TOTAL PROTEIN 5.7 G/DL (5.7-8.2)
[2023-12-15 18:57] LABS: THYROID STIMULATING HORMONE 3.856 uIU/ML (0.55-4.78)
[2023-12-15 19:09] LABS: OSMOLALITY SERUM 374 MOSM/KG (280-301)
[2023-12-15 19:23] LABS: ATYPICAL LYMPH 4 % (0-5); LYMPHOCYTES 3 % (16-44); METAMYELOCYTES 1 % (0-0); MONOCYTES 2 % (0-5); NEUTROPHILS 78 % (28-66); PLATELET ESTIMATE NORMAL (NORMAL)
[2023-12-15 19:45] LABS: VENOUS HCO3 17.5 MMOL/L (23.0-27.0); VENOUS PARTIAL PRESSURE CO2 36.1 mmHg (38.0-50.0); VENOUS PARTIAL PRESSURE O2 81.2 mmHg (30.0-50.0); VENOUS PH 7.304 UNITS (7.330-7.430); VENOUS STANDARD HCO3 17.9 MMOL/L; VENOUS TOTAL CO2 18.6 MMOL/L (24.0-28.0)
[2023-12-15] MEDS: CEFEPIME HCL 1 GM in D5W MINI-BAG PLUS 50 ML IV ONE (19:46)
[2023-12-15] MEDS: VANCOMYCIN HCL 1,000 MG, VIAL MATE ADAPTER 1 EACH in D5W 250 ML IV ONE (20:22)
[2023-12-15] MEDS ORDERED: DEXTROSE 50% 50ML SYRINGE IV PRN (21:20)
[2023-12-15] MEDS: LR 1,000 ML IV SCH (21:20)
[2023-12-15] MEDS ORDERED: PIPERACILLIN/TAZOBACTAM SOD 4.5 GM in D5W MINI-BAG PLUS 50 ML IV SCH (21:20)
[2023-12-15] MEDS ORDERED: GLUCOSE 4 GM CHEW PO PRN (21:20)
[2023-12-15] MEDS ORDERED: GLUCAGON INJ 1MG VIAL SC PRN (21:20)
[2023-12-15] MEDS ORDERED: VANCOMYCIN HCL 1,000 MG, VIAL MATE ADAPTER 1 EACH in NS 250 ML IV SCH (21:50)
[2023-12-15] MEDS ORDERED: CYAN-1 PO (22:46)
[2023-12-15] MEDS ORDERED: HOME MED LIST COMPLETE! XX SCH (22:50)
[2023-12-15 23:30] VITALS: BP 157/77; TEMP 94.5; O2SAT 98
[2023-12-15] MEDS: NS 0.45% 1,000 ML IV SCH (23:48)
[2023-12-16] VITALS (8 sets, daily range): BP systolic 87–157; BP diastolic 46–77; TEMP 94.5–99; O2SAT 94–98
[2023-12-16] MEDS: PIPERACILLIN/TAZOBACTAM SOD 2.25 GM in D5W MINI-BAG PLUS 50 ML IV SCH (00:57)
[2023-12-16] MEDS: INSULIN LISPRO (NovoLOG) PER UNIT SC SCH (00:58)
[2023-12-16 03:25] LABS: CALCIUM LEVEL 8.2 MG/DL (8.3-10.6); CREATININE FOR GFR 2.24 MG/DL (0.55-1.30); GLOMERULAR FILTRATION RATE 22.2 (>32); POTASSIUM SERUM 4.4 MMOL/L (3.5-5.1)
[2023-12-16 08:45] LABS: HEMATOCRIT 36.6 % (36.0-47.0); HEMOGLOBIN 11.7 g/dl (12.0-15.5); MEAN CORPUSCULAR VOLUME 90.8 fl (80.0-96.0); PLATELET COUNT, AUTOMATED 230 10^3/uL (150-450); RED BLOOD COUNT 4.03 10^6/uL (4.00-5.40); WHITE BLOOD COUNT 15.1 10^3/uL (4.0-10.0)
[2023-12-16] MEDS ORDERED: ENOXAPARIN 40MG/0.4ML SYRINGE (J1650 PER 10MG) SC SCH (09:00)
[2023-12-16 09:16] LABS: VANCOMYCIN RANDOM 12.8 UG/ML
[2023-12-16 09:18] LABS: ALBUMIN 1.6 G/DL (3.2-5.2); BILIRUBIN,TOTAL 0.6 MG/DL (0.3-1.2); CALCIUM LEVEL 8.6 MG/DL (8.3-10.6); CREATININE FOR GFR 2.27 MG/DL (0.55-1.30); GLOMERULAR FILTRATION RATE 21.8 (>32); MAGNESIUM LEVEL 2.5 MG/DL (1.8-2.4); POTASSIUM SERUM 4.4 MMOL/L (3.5-5.1); TOTAL PROTEIN 5.6 G/DL (5.7-8.2)
[2023-12-16] MEDS: VANCOMYCIN HCL 500 MG in D5W MINI-BAG PLUS 100 ML IV SCH (09:39)
[2023-12-16] MEDS: SODIUM CHLORIDE 23.4% INJ 40.8 MEQ in STERILE WATER LITER BAG 1,050 ML IV SCH (10:46)
[2023-12-16] MEDS ORDERED: HYOSCYAMINE SULFATE 0.125 MG SUBL TABLET PO PRN (12:30)
[2023-12-16] MEDS ORDERED: ACETAMINOPHEN 650MG SUPP PR PRN (12:30)
[2023-12-16] MEDS ORDERED: ONDANSETRON 4MG 2ML VIAL IV PRN (12:30)
[2023-12-16] MEDS ORDERED: SCOPOLAMINE 1MG TRANSDERMAL PATCH TOP PRN (12:30)
[2023-12-16] MEDS: MORPHINE 10MG/0.5ML ORAL CONCENTRATE SOLUTION U/D SL PRN (17:59)
[2023-12-17] MEDS: LORazepam 1 MG TAB PO PRN (08:45)
[2023-12-17] MEDS ORDERED: VANCOMYCIN HCL 500 MG in D5W MINI-BAG PLUS 100 ML IV SCH (09:00)
== END 2023-12-20 12:33 | disposition expired | DRG 871 ==
LOC: EDBD 17:55 → EDSEX 17:55 → M ED 17:55 → M ED INP 21:17 → M PCU 22:56 → M MS5PR 12-16 18:35
PROVIDERS: ADMIT Internal Medicine; ATTEND Internal Medicine Nephrology
DX: A41.9 Sepsis, unspecified organism (principal); J96.01 Acute respiratory failure with hypoxia; E43 Unspecified severe protein-calorie malnutrition; G93.41 Metabolic encephalopathy; J18.9 Pneumonia, unspecified organism; R65.21 Severe sepsis with septic shock; N39.0 Urinary tract infection, site not specified; N17.9 Acute kidney failure, unspecified; E87.0 Hyperosmolality and hypernatremia; Z68.1 Body mass index [BMI] 19.9 or less, adult; E87.20 Acidosis, unspecified; I10 Essential (primary) hypertension; E11.65 Type 2 diabetes mellitus with hyperglycemia; G30.9 Alzheimer's disease, unspecified; F02.80 Dementia in other diseases classified elsewhere, unspecified severity, without behavioral disturbance, psychotic disturbance, mood disturbance, and anxiety; E03.9 Hypothyroidism, unspecified; E86.0 Dehydration; D64.9 Anemia, unspecified; M10.9 Gout, unspecified; Z51.5 Encounter for palliative care; Z79.4 Long term (current) use of insulin; Z79.899 Other long term (current) drug therapy